=== PATIENT | female | born 1990 | race Asian ===

== ENCOUNTER 2019-10-17 13:43 | Emergency (ER) | payer OTHER ==
[~2019-10-17] VITALS: Ht 152.4 cm; Wt 61.7 kg
[2019-10-17 13:45] VITALS: BP 133/82; Ht 152.4 cm; Wt 61.7 kg
[2019-10-17 14:12] LABS: RED CELL DISTRIBUTION WIDTH 12.9 % (11.5-14.5)
[2019-10-17 14:16] LABS: PLATELET COUNT 404 x10^3mcL (130-400)
== END 2019-10-17 15:19 | disposition home or self-care (01) ==
LOC: ED 13:43
PROVIDERS: Emergency Medicine
DX: O26.891 Other specified pregnancy related conditions, first trimester (principal); R10.30 Lower abdominal pain, unspecified; Z3A.01 Less than 8 weeks gestation of pregnancy
CPT/HCPCS: 36415